=== PATIENT | male | born 1950 | race Caucasian/White ===

== ENCOUNTER 2019-01-07 09:55 | Emergency (ER) | payer MEDICARE, OTHER, SELFPAY ==
[2019-01-07 09:57] VITALS: BP 143/78; PULSE 68; RESP 13; TEMP 36.8; O2SAT 99; BMI 14.8
--- NOTE | 2019-01-07 10:06 | RAD_ITS ---
STUDY: X-RAY CHEST REASON FOR EXAM: Male, 68 years old. Dyspena TECHNIQUE: PA and lateral views of the chest. COMPARISON: 07/14/2006 FINDINGS: There is hyperinflation of the lungs consistent with chronic obstructive lung disease (COPD). There is pleural fibrotic thickening of the pulmonary lung apices. Surgical sutures of left upper lung field. There is a surgical clip of left hilum. Normal size heart. Normal mediastinum and herber. Normal visualized pulmonary arteries. There is atherosclerotic calcification of the aortic arch with tortuosity. There is demineralization of the osseous structures. Exaggerated thoracic kyphosis. Compression deformity of mid thoracic vertebral body is new since 2006. There is no demonstrated abnormality of the visualized soft tissue structures of the upper abdomen. RAD/Chest PA and Lateral IMPRESSION: 1. No acute cardiopulmonary process. 2. New mid thoracic vertebral body compression fracture since 2006, unknown clinical significance. 3. COPD. Electronically Signed: Aleks Key MD (Brooks) at 10:45 EDT , Service support ,
--- NOTE | 2019-01-07 10:16 | EKG12_ITS ---
Test Reason : CP Blood Pressure : / mmHG Vent. Rate : 064 BPM Atrial Rate : 064 BPM P-R Int : 136 ms QRS Dur : 088 ms QT Int : 386 ms P-R-T Axes : 087 089 066 degrees QTc Int : 398 ms Normal sinus rhythm Normal ECG Confirmed by MAURISIO SORIA, LINDY ([id number]), graphic editor ANDRE MONAE ([id number]) on 01/15/2019 1:24:36 PM Referred By: ERIN Confirmed By:ELLEN FORDE MD
[2019-01-07] MEDS: Ondansetron 4 MG/2 ML Vial IV (10:50)
[2019-01-07] MEDS: Morphine 2 MG/ML Syringe IV (10:50)
[2019-01-07 10:59] LABS: Absolute Lymphocyte Count 0.54 X10^3/uL (0.83-4.51); Absolute Neutrophil Count 7.1 X10^3/uL (2.0-7.7); Basophil# 0.05 X10^3/uL; Basophil% 0.6 % (0-1); Eosinophil# 0.15 X10^3/uL; Eosinophils% 1.7 % (0-5); Lymphocyte # 0.54 X10^3/ul (4.0); Lymphocyte % 6.1 % (19-41); Mean Corp Hgb Conc 31.6 g/dL (32-36); Mean Corpuscular Hgb 31.7 pg (27.0-32.0); Mean Corpuscular Volume 100.3 fL (80-94); Mean Platelet Vol. 9.4 fl (6.2-12.0); Monocyte# 0.98 X10^3/uL; NRBC Flagged by Analyzer 0 % (0-5); Neutrophil % 79.9 % (47-70); POSITIVE DIFFERENTIAL YES; Platelet Count 216 K/mm3 (150-450); RBC Distribution Width CV 13.8 % (11.6-14.6); RBC Distribution Width SD 51.3 fl (35.1-43.9); Red Blood Count 3.79 M/mm3 (4.6-6.2); White Blood Count 8.9 K/mm3 (4.4-11.0)
[2019-01-07 11:05] LABS: Differential Indicated SCAN CRITERIA MET
[2019-01-07 11:18] LABS: Anion Gap 4 (5-15); BUN 11 mg/dL (7-18); BUN/Creat Ratio 20.5 RATIO (10-20); Calcium,Total 8.5 mg/dL (8.5-10.1); Chloride 101 mmol/L (98-107); Creatinine, Serum 0.54 mg/dL (0.70-1.30); EST Glomerular Filtration Rate 162 mL/min (>60); Est Glom Filt Rate - Afr Amer 196 mL/min (>60); Estimated Creatinine Clearance 43.09 ml/min; Glucose 97 mg/dL (74-106); Potassium 4.3 mmol/L (3.5-5.1); Sodium Level 140 mmol/L (136-145)
[2019-01-07 11:25] VITALS: BP 118/71; PULSE 70; RESP 14; O2SAT 100
--- NOTE | 2019-01-07 11:35 | ED.VIS.BACK ---
History of Present Illness Informant: Patient, Family Onset: Today Context: Sudden Onset Chronic pain exacerbated by: Attempting to use inhaler Injury: Twisting Timing: Continuous Quality: Sharp Location: Thoracic Current Severity: Severe Maximum Severity: Severe Worsened by: improves with: Movement, Ambulation, Bending Relieved by: Nothing Associated Symptoms: - - Denies associated symptoms Narrative: 68-year-old male history of emphysema presents to the emergency department with thoracic back pain that started suddenly while the patient leaned forward to attempt to use inhaler. Sudden onset of sharp pain in his thoracic back bilaterally. It is been constant. Only worse with movement and deep inspiration. He is not short of breath. No chest pain. He does not feel lightheaded or dizzy. Denies numbness tingling or weakness. Denies diaphoresis. Denies nausea or vomiting. Prior similar symptoms: Yes Recent Illness/Hospitalization: No <David Hardwick - Last Filed: 01/07/19 11:35> <Belinda Spear - Last Filed: 01/07/19 15:17> Chief Complaint: Back Past Medical History Prior records reviewed: Yes Past Medical History: - - Emphysema Surgical History: - - Lung resection Lives: With Family Smoking Status: Former smoker Alcohol: None <David Hardwick - Last Filed: 01/07/19 11:35> <Belinda Spear - Last Filed: 01/07/19 15:17> - Allergies and Home Meds Allergies/Adverse Reactions: Allergies No Known Allergies Allergy (Verified 01/07/19 09:56) Primary Care Physician: Haydee Alvarez MD [Primary Care Provider] - Review of Systems All systems negative except as indicated Musculoskeletal: Reports: Back pain <David Hardwick - Last Filed: 01/07/19 11:35> Physical Exam Vital Signs/Narrative: Vital Signs Temp Pulse Resp BP Pulse Ox 01/07/19 11:25 70 14 118/71 100 01/07/19 09:57 98.2 F 68 13 143/78 H 99 Inital Vital Signs reviewed: Yes General: Well nourished, Well developed Head: Normocephalic, Atraumatic Eyes: Perrl, EOMI ENT: Moist mucous membranes, No rhinorrhea Neck: Supple, Nontender Cardiovascular: Regular rate, Regular rhythm Respiratory: No distress, Chest nontender, Decreased Air Movement. Negative for: Retractions Abdomen: Soft, Nontender, Nondistended, Normal bowel sounds, No masses Back: Normal Inspection, Paraspinal Tenderness - Patient has bilateral thoracic paraspinal pain on palpation but there is no midline tenderness of the cervical, thoracic or lumbar spine. Strength testing of his upper and lower extremities is 5 out of 5 bilaterally. Normal pulses and sensation of all 4 extremities.. Negative for: Spinal tenderness, CVA tenderness, Positive SLR - Right, Negative SLR - Right, Positive SLR - Left, Negative SLR - Left Extremeties: Nontender, No edema Skin: Normal color, No rash Neuro: Alert, Oriented <David Hardwick - Last Filed: 01/07/19 11:35> Vital Signs/Narrative: Vital Signs Pulse Resp BP Pulse Ox 01/07/19 12:19 70 15 134/74 H 94 01/07/19 11:25 70 14 118/71 100 <Belinda Spear - Last Filed: 01/07/19 15:17> Diagnostic/Tx/Re-eval - EKG Initial EKG Interpretation: Sinus Rhythm, No Acute Injury Pattern Prior: Unchanged - Medical Decision Making On arrival patient complains of thoracic back pain bilaterally that is reproduced with palpation of his paraspinal musculature. Vital signs are stable. X-ray of the chest was performed to rule out pneumothorax. This showed no acute pneumothorax or other acute abnormality other than a age-indeterminate compression fracture of the thoracic spine. EKG showed no signs of ischemia, unchanged from his previous EKG. Labs unremarkable. Troponin negative. Patient had morphine for pain which improved his symptoms. He is breathing more comfortably. His vital signs are stable. Feel that symptoms are musculoskeletal in nature. Patient will be discharged with a small course of Lincoln. Advised on rest and ice and close outpatient follow-up with his primary care physician in the next 1 to 2 days or he is to return here to the emergency department. <David Hardwick - Last Filed: 01/07/19 11:35> - Medical Decision Making Patient seen and evaluated with PA. Patient was using his inhaler this morning when he had sudden onset of severe back pain. He states it hurts to move or try to take a deep breath. He does wear home oxygen at baseline. Patient sitting upright in bed. Heart is regular rate and rhythm. Lung sounds are diminished bilaterally. Abdomen is soft nontender. Normal peripheral pulses noted. X-rays reveal no evidence of pneumothorax. Laboratory evaluation is unremarkable. Patient is improved after analgesics. Patient be discharged with analgesics for home and return if any symptoms worsen. <Belinda Spear - Last Filed: 01/07/19 15:17> ED Disposition <David Hardwick - Last Filed: 01/07/19 11:35> <Belinda Spear - Last Filed: 01/07/19 15:17> - Plan for ED Patient: Disposition: Home or Assisted Living Diagnosis: Acute thoracic myofascial strain, Emphysema lung Instructions: BACK PAIN (Acute or Chronic) Prescriptions: Hydrocodone Bitart/Apap 5-325 [Lincoln 5MG-325MG] 1 tab PO Q6H PRN PRN 3 Days #10 tab PRN Reason: Pain Prescription Printed Referrals: Haydee Alvarez MD [Primary Care Provider] -
[2019-01-07] MEDS: HYDROcodone Bitartrate/Apap 5/325 Tablet PO (11:43)
[2019-01-07 12:19] VITALS: BP 134/74; PULSE 70; RESP 15; O2SAT 94
== END 2019-01-07 12:46 | disposition home or self-care (01) ==
PROVIDERS: Emergency Provider Physician Assistant Medical; Family Provider Internal Medicine; PCP Internal Medicine
DX: S29.012A Strain of muscle and tendon of back wall of thorax, initial encounter (principal); X58.XXXA Exposure to other specified factors, initial encounter; Y93.9 Activity, unspecified; Y92.9 Unspecified place or not applicable; Y99.9 Unspecified external cause status; G89.29 Other chronic pain; J43.9 Emphysema, unspecified; Z79.82 Long term (current) use of aspirin; Z79.899 Other long term (current) drug therapy; Z87.891 Personal history of nicotine dependence
CPT/HCPCS: 71046; 80048; 84484; 85025; 93005; 96374; 96375; 99285; J2405

== ENCOUNTER 2019-11-24 18:16 | Emergency (ER) | payer MEDICARE, OTHER, SELFPAY ==
[2019-11-24 18:18] VITALS: BP 131/65; PULSE 68; RESP 16; TEMP 36.5; O2SAT 98; BMI 18.6
--- NOTE | 2019-11-24 18:32 | ED.VIS.FALL ---
History of Present Illness Chief Complaint: Fall Informant: Patient, Supplemental Manager Occurred: Today Mechanism/Context: Same level fall Usually ambulates: Without assistance Current Severity: Gone Maximum Severity: 0/10 Associated Symptoms: Negative for: Parasthesias, Weakness, Loss of consciousness Narrative: Patient states he was helping his to lift a heavy bench outside of their house, and in doing so while actively lifting he felt a pop in his back, it caused him to lose his balance, dropped the bench and fall backward to the ground. He fell onto his left side/hip, sustained a skin tear to his left hand, denies having any pain but because of the pop in his back was afraid to move so he did not and did not try to get up. He laid there until EMS brought him here. Still denies any pain. Denies any numbness in his legs or inguinal area/perineum. He denies any significant hip pain although he states it is a little sore where he fell there at his greater trochanter. He denies any other injuries. Past Medical History - Allergies and Home Meds Allergies/Adverse Reactions: Allergies No Known Allergies Allergy (Verified 11/24/19 18:21) Primary Care Physician: Haydee Alvarez MD [STAFF PHYSICIAN] - Surgical History: - - Lung resection Lives: Spouse/ Significant Other Smoking Status: Former smoker Review of Systems General: Denies: Chills, Fever, Sweats Eyes: Denies: Visual changes - bilaterally, Diplopia ENT: Denies: Rhinorrhea, Sore throat Cardiovascular: Denies: Chest pain, Palpitations Respiratory: Reports: Dyspnea on exertion - chronic. Denies: Dyspnea, Cough Gastrointestinal: Denies: Abdominal pain, Nausea, Vomiting, Diarrhea, Melena, Hematochezia Genitourinary: Denies: Dysuria, Hematuria, Frequency Musculoskeletal: Reports: Extremity Pain. Denies: Neck pain, Back pain Skin: Reports: Wounds. Denies: Rash Neurological: Denies: Headache, Weakness, Numbness Physical Exam Vital Signs/Narrative: Vital Signs Temp Pulse Resp BP Pulse Ox 11/24/19 18:18 97.7 F L 68 16 131/65 H 98 Inital Vital Signs reviewed: Yes General: Well nourished, Well developed, - - NAD. thin. Head: Normocephalic, Atraumatic Eyes: Perrl, EOMI ENT: TM's clear, No hemotympanum or drainage, No trauma Neck: Nontender, Full ROM. Negative for: Spinal Tenderness Cardiovascular: Regular rate, Regular rhythm, No murmurs Respiratory: No distress, CTA bilaterally, Chest nontender Abdomen: Soft, Nontender, Nondistended, Normal bowel sounds Back: Nontender - Including spine, paraspinal areas, SI joint, pelvic brim, sacrum. No signs of trauma. No rashes., - - With actively trying to sit up, patient complains of pain in his low back. He rolls over onto his side and also complains of pain in doing this, but once he is on his side/decubitus, he feels better. Mild radiation into the posterior left thigh only.. Negative for: Spinal Tenderness Extremeties: With performing straight leg raises, which are negative, patiently suddenly complains of pain in his left medial thigh and states he is having muscle cramping. No apparent hip joint pain with internal/external rotation. Full range of motion all joints of both lower extremities otherwise without pain. Skin: Normal color, No rash, No Trauma Neurological: Alert, Oriented x3, Cranial nerves II-XII grossly intact, Normal Strength, Normal Sensation Psychological: Normal affect, Normal Mood Diagnostic/Tx/Re-eval Clinical Impression(s) from Imaging Studies Lumbar Spine X-Ray 11/24/19 18:45 IMPRESSION: Age-indeterminate compression deformity of the L4 vertebral body with 50% loss of height noted. No definite cortical break is seen that would typically be associated with an acute fracture. The remaining vertebral bodies are unremarkable. Electronically Signed: Brian Prajapati MD at 19:29 EDT , Service support , Pelvis X-Ray 11/24/19 18:45 IMPRESSION: Normal x-ray examination of the pelvis. Electronically Signed: Eulogio Joiner MD at 19:07 EDT , Service support , Thoracic Spine X-Ray 11/24/19 18:45 IMPRESSION: Prominent worsening of compression fracture of T8 since previous study. Very mild compression fracture of T12, new since prior study. Electronically Signed: Eulogio Joiner MD at 19:10 EDT , Service support , - Medical Decision Making Patient was given a tramadol which helped. We were able to get him on his feet and he was able to stand and walk, he did have pain with it but tolerated it and has a walker and other ambulatory assist devices at home. He is comfortable going home. Will prescribe him some analgesics, and have him follow-up with his doctor. He is neurologically intact. He has no bowel or bladder dysfunction. I suspect the worsening T8 compression fracture is what he felt and is causing his pain now, he is relatively vague about the area of pain but states it is about in the middle of his back. He is not tender, but this is probably it. ED Disposition - Plan for ED Patient: Disposition: Home or Assisted Living Diagnosis: Thoracic compression fracture Instructions: ED Fx Comp Vertebral Prescriptions: traMADol [Ultram] 50 mg PO Q4H PRN PRN 3 Days #14 tab PRN Reason: Pain Prescription Printed Referrals: Haydee Alvarez MD [STAFF PHYSICIAN] - 3-5 Days
--- NOTE | 2019-11-24 18:45 | RAD_ITS ---
STUDY: X-RAY - THORACIC SPINE REASON FOR EXAM: Male, 69 years old. back gave out while lifting something heavy, left leg pain -- heard a pop TECHNIQUE: 3 view(s) of the thoracic spine were obtained. COMPARISON: Chest x-ray 01/07/2019. FINDINGS: Normal kyphosis of the thoracic spine. There is no substantial scoliosis. Significant worsening of a compression fracture of T8, which is severe now and only moderate previously. Also very mild compression fracture T12, new since prior study. Otherwise normal thoracic vertebrae and endplates. Normal disc space heights. The soft tissue structures are unremarkable. RAD/Thoracic Spine 2 Views IMPRESSION: Prominent worsening of compression fracture of T8 since previous study. Very mild compression fracture of T12, new since prior study. Electronically Signed: Eulogio Joiner MD at 19:10 EDT , Service support ,
--- NOTE | 2019-11-24 18:45 | RAD_ITS ---
STUDY: X-RAY - LUMBAR SPINE REASON FOR EXAM: Male, 69 years old. back gave out while lifting something heavy, left leg pain -- heard a pop TECHNIQUE: 4 view(s) of the lumbar spine were obtained. COMPARISON: None FINDINGS: Age-indeterminate compression deformity of the L4 vertebral body with 50% loss of height noted. No definite cortical break is seen that would typically be associated with an acute fracture. The remaining vertebral bodies are unremarkable. Normal lumbar lordosis. There is no substantial scoliosis. There is a normal alignment of the vertebrae. Normal vertebral bodies and endplates. Normal disc space heights. There is atherosclerotic calcification of the abdominal aorta without a demonstrated aneurysm. RAD/Lumbar Spine 2 or 3 Views IMPRESSION: Age-indeterminate compression deformity of the L4 vertebral body with 50% loss of height noted. No definite cortical break is seen that would typically be associated with an acute fracture. The remaining vertebral bodies are unremarkable. Electronically Signed: Brian Prajapati MD at 19:29 EDT , Service support ,
--- NOTE | 2019-11-24 18:45 | RAD_ITS ---
STUDY: X-RAY - PELVIS REASON FOR EXAM: Male, 69 years old. left leg pain TECHNIQUE: One view of the pelvis was obtained. COMPARISON: None. FINDINGS: There is a non-specific bowel gas pattern. Normal visualized soft tissue structures. Normal bilateral iliac wings, sacroiliac joints and visualized sacrum. Normal visualized bilateral superior and inferior pubic rami. Normal pubic symphysis. Normal ischial tuberosities. Normal visualized right femoral head. Normal right acetabulum. Normal right hip joint. Normal visualized left femoral head. Normal left acetabulum. Normal left hip joint. RAD/Pelvis 1 or 2 Views IMPRESSION: Normal x-ray examination of the pelvis. Electronically Signed: Eulogio Joiner MD at 19:07 EDT , Service support ,
[2019-11-24] MEDS: traMADol 50 MG Tablet PO (19:06)
[2019-11-24 19:08] VITALS: BP 123/81; PULSE 84; RESP 18; O2SAT 100
[2019-11-24 20:21] VITALS: O2SAT 96
[2019-11-24 20:36] VITALS: BP 115/70; PULSE 81; RESP 20; O2SAT 95
--- NOTE | 2019-11-24 21:26 | ED.RN ---
pharm brought prescription. pt switched to own O2. wheeled out.
== END 2019-11-24 21:26 | disposition home or self-care (01) ==
PROVIDERS: Emergency Provider Emergency Medicine; PCP Internal Medicine Infectious Disease
DX: M48.54XA Collapsed vertebra, not elsewhere classified, thoracic region, initial encounter for fracture (principal); Z87.891 Personal history of nicotine dependence
CPT/HCPCS: 72070; 72100; 72170; 99284